=== PATIENT | male | born 1955 | race Caucasian/White ===

== ENCOUNTER → 2017-05-23 | Outpatient (CLI) | payer BC ==
[~2017-05-23] MED LIST: AMIO200T33 PO; CARV25TA PO; ENAL5TAB92 PO; ISOS20TA49 PO; NITR0.4S31 SL; [UNRECOGNIZED DRUG - CODE] PO; protonix PO
== END | disposition home or self-care (01) ==
LOC: Rad HDHVI 13:51
PROVIDERS: ATTEND Internal Medicine Cardiovascular Disease
DX: E78.5 Hyperlipidemia, unspecified (principal); R06.02 Shortness of breath
CPT/HCPCS: 93306

== ENCOUNTER → 2017-07-26 | Outpatient (CLI) | payer OTHER ==
[~2017-07-26] VITALS: Ht 195.6 cm; Wt 108.9 kg
[~2017-07-26] MED LIST changes: +ADENOSINE 90 MG/30 ML INJ IV ONE; +ADENOSINE 91 MG in GIVE UN-DILUTED 0 ML IV ONE
[2017-07-26 16:34] LABS: Urine Bilirubin Negative (Negative); Urine Blood Negative /uL (Negative); Urine Color Yellow (Yellow); Urine Glucose Normal (Normal); Urine Ketone Negative (Negative); Urine Nitrite Negative (Negative); Urine Urobilinogen Normal (Negative)
[2017-07-26 16:37] LABS: Hematocrit 46.9 % (41.0-53.0); Hemoglobin 16.1 g/dL (13.5-17.5); Mean Corpuscular Hemoglobin 32.5 pg (28.0-32.0); Mean Corpuscular Hgb Conc. 34.3 g/dL (32.0-36.0); Mean Corpuscular Volume 94.6 fL (80.0-100.0); Mean Platelet Volume 7.8 fL (6.9-10.8); Platelet Count (auto) 208 10^3/uL (140-450); Red Cell Distribution Width 15.1 % (11.8-14.3); White Blood Cell 7.2 10^3/uL (4.4-10.8)
[2017-07-26 16:40] LABS: BUN/Creatinine Ratio 13.2; Bilirubin, Direct 0.2 mg/dL (0-0.2); Bilirubin, Total 0.7 mg/dL (0.2-1.0); Calcium 9.1 mg/dL (8.5-10.1); Potassium 4.1 mmol/L (3.5-5.1); Total Protein 7.1 g/dL (6.4-8.2)
[2017-07-26 16:51] LABS: Metamyelocytes % 0; Myelocytes % 0; Promyelocytes % 0; Reactive Lymphocytes 0
[2017-07-26 19:03] LABS: Platelet Estimate Adequate; RBC Morphology Normal
== END | disposition home or self-care (01) ==
LOC: Rad HDHVI 10:21
PROVIDERS: ATTEND Internal Medicine Cardiovascular Disease
DX: I10 Essential (primary) hypertension (principal); E78.00 Pure hypercholesterolemia, unspecified; K74.1 Hepatic sclerosis; E11.9 Type 2 diabetes mellitus without complications; R97.20 Elevated prostate specific antigen [PSA]; R53.81 Other malaise; E03.9 Hypothyroidism, unspecified; D64.9 Anemia, unspecified; E55.9 Vitamin D deficiency, unspecified; N39.0 Urinary tract infection, site not specified
CPT/HCPCS: 36415; 78452; 80048; 80061; 80076; 81003; 82306; 83036; 84153; 84403; 84443; 85007; 85027; 93005; 96374; 96375; A9500; J0153

== ENCOUNTER → 2017-08-06 | Outpatient (CLI) | payer OTHER ==
[~2017-08-06] MED LIST changes: -ADENOSINE 90 MG/30 ML INJ IV ONE; -ADENOSINE 91 MG in GIVE UN-DILUTED 0 ML IV ONE
[2017-08-06 16:30] VITALS: BP 155/95
[2017-08-06 16:45] VITALS: BP 153/93
== END | disposition home or self-care (01) ==
LOC: CHF HDHVI 16:37
PROVIDERS: ATTEND Internal Medicine Cardiovascular Disease
DX: I50.9 Heart failure, unspecified (principal)
CPT/HCPCS: 96372; G0463

== ENCOUNTER → 2017-08-20 | Outpatient (CLI) | payer OTHER ==
[2017-08-20 14:55] VITALS: BP 126/77
[2017-08-20 15:45] VITALS: BP 130/77
[2017-08-20 17:01] LABS: Urine Blood Negative /uL (Negative); Urine Glucose Normal (Normal); Urine Ketone TRACE (Negative); Urine Mucus MANY (None Seen); Urine Nitrite Negative (Negative); Urine RBC 2 /hpf (0 - 3); Urine Squamous Epithelial Cell FEW /hpf (<5); Urine pH 5.5 (5.0-8.0)
[2017-08-20 17:04] LABS: Urine Bilirubin Negative (Negative); Urine Color AMBER (Yellow)
[2017-08-20 17:11] LABS: Hematocrit 49.6 % (41.0-53.0); Hemoglobin 17.2 g/dL (13.5-17.5); Mean Corpuscular Hemoglobin 32.4 pg (28.0-32.0); Mean Corpuscular Hgb Conc. 34.6 g/dL (32.0-36.0); Mean Corpuscular Volume 93.4 fL (80.0-100.0); Mean Platelet Volume 7.8 fL (6.9-10.8); Platelet Count (auto) 230 10^3/uL (140-450); Red Cell Distribution Width 14.3 % (11.8-14.3); White Blood Cell 10.2 10^3/uL (4.4-10.8)
[2017-08-20 17:13] LABS: BUN/Creatinine Ratio 17.8; Calcium 8.6 mg/dL (8.5-10.1); Potassium 3.6 mmol/L (3.5-5.1)
[2017-08-20 18:21] LABS: Promyelocytes % 0; Reactive Lymphocytes 0
[2017-08-20 18:36] LABS: Metamyelocytes % 2; Myelocytes % 1; Platelet Estimate Adequate
[2017-08-20 18:37] LABS: Tear Drop Cells FEW
[2017-08-20 19:10] LABS: Ovalocytes FEW; Toxic Granulation Slight
== END | disposition home or self-care (01) ==
LOC: CHF HDHVI 15:05
PROVIDERS: ATTEND Internal Medicine Cardiovascular Disease
DX: I10 Essential (primary) hypertension (principal); N39.0 Urinary tract infection, site not specified; D64.9 Anemia, unspecified
CPT/HCPCS: 36415; 80048; 81001; 85007; 85027; 87086; G0463

== ENCOUNTER → 2017-10-30 | Outpatient (CLI) | payer OTHER ==
[2017-10-30 12:17] LABS: Urine Bilirubin Negative (Negative); Urine Blood Negative /uL (Negative); Urine Color Yellow (Yellow); Urine Glucose Normal (Normal); Urine Ketone Negative (Negative); Urine Nitrite Negative (Negative); Urine Urobilinogen Normal (Negative)
== END | disposition home or self-care (01) ==
LOC: CHF HDHVI 08:04
PROVIDERS: ATTEND Internal Medicine Cardiovascular Disease
DX: N39.0 Urinary tract infection, site not specified (principal); R97.0 Elevated carcinoembryonic antigen [CEA]
CPT/HCPCS: 81003; 82378; 87086

== ENCOUNTER → 2018-01-08 | Outpatient (CLI) | payer OTHER ==
[2018-01-08 16:12] LABS: Albumin 3.9 g/dL (3.4-5.0); BUN/Creatinine Ratio 16.9; Calcium 8.7 mg/dL (8.5-10.1); Potassium 4.2 mmol/L (3.5-5.1)
[2018-01-08 16:15] LABS: Basophils # (auto) 0.1 uL; Basophils % (auto) 1.1 % (0.0-2.0); Bilirubin, Total 0.4 mg/dL (0.2-1.0); Eosinophils # (auto) 0.3 uL; Hemoglobin 15.6 g/dL (13.5-17.5); Lymphocytes # (auto) 1.8 uL; Lymphocytes % (auto) 27.6 % (10.0-50.0); Mean Corpuscular Hemoglobin 31.7 pg (28.0-32.0); Mean Corpuscular Hgb Conc. 34.8 g/dL (32.0-36.0); Mean Corpuscular Volume 91.1 fL (80.0-100.0); Monocytes # (auto) 0.6 uL; Monocytes % (auto) 9.3 % (0.0-12.0); Neutrophils # (auto) 3.7 uL; Nucleated Red Blood Cells % 0.2 %; Platelet Count (auto) 202 10^3/uL (140-450); Red Blood Cells 4.94 10^6/uL (4.5-5.90); Red Cell Distribution Width 14.1 % (11.8-14.3); Total Protein 6.8 g/dL (6.4-8.2); White Blood Cell 6.6 10^3/uL (4.4-10.8)
== END | disposition home or self-care (01) ==
LOC: LAB 14:32
PROVIDERS: ATTEND Internal Medicine Cardiovascular Disease
DX: D64.9 Anemia, unspecified (principal); R74.8 Abnormal levels of other serum enzymes; I50.9 Heart failure, unspecified; I10 Essential (primary) hypertension
CPT/HCPCS: 36415; 80053; 82550; 83880; 85025

== ENCOUNTER → 2018-07-04 | Outpatient (CLI) | payer OTHER ==
[2018-07-04 16:08] LABS: Urine Blood Negative /uL (Negative); Urine Specific Gravity 1.028 (1.001-1.035)
[2018-07-04 16:19] LABS: Basophils # (auto) 0.1 uL; Basophils % (auto) 0.9 % (0.0-2.0); Eosinophils # (auto) 0.2 uL; Eosinophils % (auto) 2.8 % (0.0-7.0); Hematocrit 45.1 % (41.0-53.0); Hemoglobin 15.8 g/dL (13.5-17.5); Lymphocytes # (auto) 1.6 uL; Lymphocytes % (auto) 25.1 % (10.0-50.0); Mean Corpuscular Hemoglobin 31.9 pg (28.0-32.0); Monocytes # (auto) 0.5 uL; Monocytes % (auto) 7.5 % (0.0-12.0); Neutrophils # (auto) 4.1 uL; Neutrophils % (auto) 63.7 % (37.0-80.0); Nucleated Red Blood Cells % 0.1 %; Platelet Count (auto) 196 10^3/uL (140-450); Red Blood Cells 4.96 10^6/uL (4.5-5.90); Red Cell Distribution Width 14.4 % (11.8-14.3); White Blood Cell 6.4 10^3/uL (4.4-10.8)
[2018-07-04 16:38] LABS: Alanine Aminotransferase 32 U/L (16-61); Albumin 4.1 g/dL (3.4-5.0); Alkaline Phosphatase 61 U/L (45-117); Anion Gap 7 (5-15); Aspartate Aminotransferase 26 U/L (15-37); BUN/Creatinine Ratio 16.7; Bilirubin, Direct < 0.1 mg/dL (0-0.2); Bilirubin, Total 0.6 mg/dL (0.2-1.0); Blood Urea Nitrogen 30 mg/dL (7-18); Calcium 8.9 mg/dL (8.5-10.1); Carbon Dioxide 26 mmol/L (21-32); Chloride 109 mmol/L (98-107); Cholesterol 257 mg/dL (< 200); GFR African American 49 mL/min; GFR Non-African American 41 mL/min; Glucose 85 mg/dL (74-106); HDL Cholesterol 36 mg/dL (40-59); LDL Cholesterol 178 mg/dL (< 100); Potassium 4.3 mmol/L (3.5-5.1); Sodium 142 mmol/L (136-145); Total Protein 7.4 g/dL (6.4-8.2); Triglycerides 271 mg/dL (< 150)
== END | disposition home or self-care (01) ==
LOC: LAB 15:12
PROVIDERS: ATTEND Internal Medicine
DX: Z00.01 Encounter for general adult medical examination with abnormal findings (principal); E29.1 Testicular hypofunction; C61 Malignant neoplasm of prostate; E11.9 Type 2 diabetes mellitus without complications; E03.9 Hypothyroidism, unspecified; E55.9 Vitamin D deficiency, unspecified; D51.9 Vitamin B12 deficiency anemia, unspecified; K74.1 Hepatic sclerosis; N39.0 Urinary tract infection, site not specified
CPT/HCPCS: 36415; 80048; 80061; 80076; 81003; 82306; 83036; 84153; 84403; 84443; 85025; 87086

== ENCOUNTER → 2018-12-25 | Outpatient (CLI) | payer OTHER ==
[~2018-12-25] MED LIST changes: +ENAL5TAB PO; -ENAL5TAB92 PO
== END | disposition home or self-care (01) ==
LOC: Rad HDHVI 12:23
PROVIDERS: ATTEND Internal Medicine Cardiovascular Disease
DX: I67.2 Cerebral atherosclerosis (principal); I67.82 Cerebral ischemia
CPT/HCPCS: 70450

== ENCOUNTER → 2019-06-30 | Outpatient (CLI) | payer OTHER ==
[2019-06-30 15:59] LABS: Urine Blood Negative /uL (Negative); Urine Specific Gravity 1.027 (1.001-1.035)
[2019-06-30 16:17] LABS: Albumin 3.8 g/dL (3.4-5.0); Calcium 9.1 mg/dL (8.5-10.1); Potassium 4.2 mmol/L (3.5-5.1)
[2019-06-30 16:23] LABS: BUN/Creatinine Ratio 19.1; Bilirubin, Total 0.4 mg/dL (0.2-1.0); Free T4 (Free Thyroxine) 1.05 ng/dL (0.89-1.76); Total Protein 7.1 g/dL (6.4-8.2)
[2019-06-30 16:24] LABS: Basophils # (auto) 0.1 uL; Basophils % (auto) 0.7 % (0.0-2.0); Eosinophils # (auto) 0.2 uL; Eosinophils % (auto) 2.2 % (0.0-7.0); Hematocrit 43.4 % (41.0-53.0); Hemoglobin 14.9 g/dL (13.5-17.5); Lymphocytes # (auto) 1.7 uL; Mean Corpuscular Hemoglobin 30.6 pg (28.0-32.0); Mean Corpuscular Hgb Conc. 34.4 g/dL (32.0-36.0); Mean Corpuscular Volume 88.9 fL (80.0-100.0); Monocytes # (auto) 0.6 uL; Monocytes % (auto) 8.2 % (0.0-12.0); Neutrophils # (auto) 5.2 uL; Neutrophils % (auto) 66.9 % (37.0-80.0); Nucleated Red Blood Cells % 0.2 %; Platelet Count (auto) 230 10^3/uL (140-450); Prostate Specific Antigen 1.25 ng/mL (0.0-4.0); Red Blood Cells 4.88 10^6/uL (4.5-5.90); Red Cell Distribution Width 14.3 % (11.8-14.3); White Blood Cell 7.8 10^3/uL (4.4-10.8)
== END | disposition home or self-care (01) ==
LOC: LAB 14:27
PROVIDERS: ATTEND Internal Medicine Cardiovascular Disease
DX: Z00.00 Encounter for general adult medical examination without abnormal findings (principal); E03.9 Hypothyroidism, unspecified; K90.9 Intestinal malabsorption, unspecified; C61 Malignant neoplasm of prostate; E29.1 Testicular hypofunction; N39.0 Urinary tract infection, site not specified; D51.9 Vitamin B12 deficiency anemia, unspecified; N18.3 Chronic kidney disease, stage 3 (moderate); Z79.899 Other long term (current) drug therapy
CPT/HCPCS: 36415; 80053; 80061; 81003; 82306; 82607; 83036; 84153; 84403; 84439; 84443; 85025

== ENCOUNTER → 2019-09-23 | Outpatient (CLI) | payer OTHER ==
[~2019-09-23] VITALS: Ht 195.6 cm; Wt 108.0 kg
[~2019-09-23] MED LIST changes: +ADENOSINE 90 MG/30 ML INJ IV ONE; +ADENOSINE 91 MG in GIVE UN-DILUTED 0 ML IV ONE
== END | disposition home or self-care (01) ==
LOC: Rad HDHVI 13:50
PROVIDERS: ATTEND Internal Medicine
DX: I08.1 Rheumatic disorders of both mitral and tricuspid valves (principal); E78.5 Hyperlipidemia, unspecified; I49.9 Cardiac arrhythmia, unspecified; I42.9 Cardiomyopathy, unspecified; N40.0 Benign prostatic hyperplasia without lower urinary tract symptoms; M54.9 Dorsalgia, unspecified; G89.29 Other chronic pain; I11.0 Hypertensive heart disease with heart failure; I50.9 Heart failure, unspecified
CPT/HCPCS: 78452; 93005; 93306; 96374; 96375; A9500; J0153

== ENCOUNTER → 2019-09-29 | Outpatient (CLI) | payer OTHER ==
[~2019-09-29] MED LIST changes: -ADENOSINE 90 MG/30 ML INJ IV ONE; -ADENOSINE 91 MG in GIVE UN-DILUTED 0 ML IV ONE
== END | disposition home or self-care (01) ==
LOC: Rad HDHVI 09:32
PROVIDERS: ATTEND Internal Medicine
DX: M48.061 Spinal stenosis, lumbar region without neurogenic claudication (principal)
CPT/HCPCS: 72131

== ENCOUNTER → 2020-04-23 | Outpatient (CLI) | payer OTHER ==
[~2020-04-23] VITALS: Ht 195.6 cm; Wt 108.9 kg
[~2020-04-23] MED LIST changes: +CHOL10009 PO; +CHON150C PO; +HYDR12.55 PO; +ISOS30TA4 PO; +NIFE1TAB36 PO; +ZOLP10TA PO
[2020-04-23 09:15] VITALS: BP 133/83
--- NOTE | 2020-04-23 09:15 | NUR ---
CHF PT ARRIVED TO THE CHF CLINIC FOR PRE OP EKG, LABS, AND CXR FOR LHC ON 04/28/20. A/O X4, AMBULATORY.
[2020-04-23 10:03] VITALS: BP 146/83
--- NOTE | 2020-04-23 10:08 | NUR ---
Pre-Op Discharge Summary: See e-MAR for any medications given for this visit. Pre-op orders received and carried out per MD of EKG, LABS and chest xrays. Patient given a copy of EKG with instructions to go to [facility] out patient for further follow up care. NOTE EKG ADMIN BY HALLIE PLUMMER
[2020-04-23 12:28] LABS: INR 1.03 (0.9-1.15); Partial Thromboplastin Time 25.8 sec (23.64-32.05)
[2020-04-23 12:29] LABS: Basophils # (auto) 0.1 10 ^3/uL (0-0.2); Basophils % (auto) 1.2 % (0.0-2.0); Eosinophils # (auto) 0.3 10 ^3/uL (0-0.8); Eosinophils % (auto) 5.8 % (0.0-7.0); Hematocrit 44.8 % (41.0-53.0); Hemoglobin 15.1 g/dL (13.5-17.5); Lymphocytes # (auto) 1.1 10 ^3/uL (0.4-5.4); Lymphocytes % (auto) 19.9 % (10.0-50.0); Mean Corpuscular Hemoglobin 30.3 pg (28.0-32.0); Mean Corpuscular Hgb Conc. 33.7 g/dL (32.0-36.0); Monocytes # (auto) 0.5 10 ^3/uL (0-1.3); Neutrophils # (auto) 3.4 10 ^3/uL (1.6-8.6); Neutrophils % (auto) 63.1 % (37.0-80.0); Nucleated Red Blood Cells % 0.1 %; Platelet Count (auto) 191 10^3/uL (140-450); Potassium 4.2 mmol/L (3.5-5.1); Red Blood Cells 4.98 10^6/uL (4.5-5.90); Red Cell Distribution Width 14.2 % (11.8-14.3); White Blood Cell 5.4 10^3/uL (4.4-10.8)
[2020-04-23 12:47] LABS: Calcium 8.6 mg/dL (8.5-10.1)
== END | disposition home or self-care (01) ==
LOC: Rad HDHVI 09:00
PROVIDERS: ATTEND Internal Medicine
DX: Z01.812 Encounter for preprocedural laboratory examination (principal); I70.0 Atherosclerosis of aorta; I10 Essential (primary) hypertension; D64.9 Anemia, unspecified; R79.1 Abnormal coagulation profile
CPT/HCPCS: 36415; 71046; 80048; 85025; 85610; 85730; 93005; G0463

== ENCOUNTER 2020-04-28 06:52 | Day surgery (SDC) | payer OTHER, MEDICARE ==
[~2020-04-28 06:52] MED LIST changes: -CARV25TA PO; -ISOS20TA49 PO; -protonix PO
[2020-04-28] MEDS ORDERED: IODIXANOL 320MG/ML 100ML BTL IV ONE (07:00)
[2020-04-28] MEDS ORDERED: LIDOCAINE 2%HCL (LOCAL ANESTH.) INJ 20ML MDV ONE (07:53)
[2020-04-28] MEDS ORDERED: HEPARIN SODIUM (PORCINE) 5000 UNITS/ML 1ML VIAL ONE (09:00)
[2020-04-28] MEDS ORDERED: VERAPAMIL 2.5MG/ML INJ 2ML VIAL IV ONE (09:00)
[2020-04-28] MEDS ORDERED: ANGIOMAX 250 MG VIAL IV ONE (09:00)
[2020-04-28] MEDS ORDERED: MIDAZOLAM HCL 1MG/1ML-2 ML VIAL ONE ×2 (09:01→09:35)
[2020-04-28] MEDS ORDERED: fentaNYL CITRATE 100 MCG/2 ML VL ONE ×2 (09:01→09:35)
[2020-04-28] MEDS ORDERED: SODIUM CHL 0.9% 0 ML ONE (09:01)
[2020-04-28] MEDS ORDERED: diphenhdrAMINE HCL 50 MG/1 ML VL ONE (09:38)
[2020-04-28] MEDS ORDERED: HYDROcodone-ACET 5/325MG TAB PO PRN (10:10)
[2020-04-28] MEDS ORDERED: ACETAMINOPHEN 500 MG TAB PO PRN (10:10)
[2020-04-28] MEDS ORDERED: ONDANSETRON HCL 4 MG/2 ML VIAL IV PRN (10:10)
[2020-04-28] MEDS ORDERED: SODIUM CHLORIDE 0.9% 1,000 ML IV SCH (10:10)
== END 2020-04-28 13:43 | disposition home or self-care (01) ==
LOC: CATH 06:52
PROVIDERS: ATTEND Internal Medicine
DX: I25.10 Atherosclerotic heart disease of native coronary artery without angina pectoris (principal); I25.2 Old myocardial infarction; I10 Essential (primary) hypertension; E78.5 Hyperlipidemia, unspecified; Z95.5 Presence of coronary angioplasty implant and graft; Z87.891 Personal history of nicotine dependence; Z98.890 Other specified postprocedural states; Z11.59 Encounter for screening for other viral diseases
CPT/HCPCS: 93458; 93571; C1769; C1887; C1894; J1200; J1644; J2250; J3010; J7030; Q9967; U0003; 99152; 99153

== ENCOUNTER → 2020-10-12 | Outpatient (CLI) | payer MEDICARE, BC ==
[~2020-10-12] MED LIST changes: -ENAL5TAB PO; +ENAL5TAB10 PO; +METO1TAB9 PO
[2020-10-12 14:58] VITALS: BP 148/92
--- NOTE | 2020-10-12 14:58 | NUR ---
CLINIC PT ARRIVED TO THE CHF CLINIC FOR PRE OP EKG, LABS, AND CXR FOR PACEMAKER GENT CHANGE, A/X4, AMBULATORY WITH CANE, BREATHING IS EVEN AND UNLABORED.
--- NOTE | 2020-10-12 15:09 | NUR ---
EKG DONE BY DONALD PLUMMER REVIEWED BY DIONNA STEVENSON AV PACED [phone]
[2020-10-12 15:19] VITALS: BP 154/94
--- NOTE | 2020-10-12 15:19 | NUR ---
Pre-Op Discharge Summary: See e-MAR for any medications given for this visit. Pre-op orders received and carried out per MD of EKG, LABS and chest xrays. Patient given a copy of EKG with instructions to go to [facility] out patient for further follow up care. NOTE EKG DONE BY DONALD PLUMMER REVIEWED BY DIONNA STEVENSON
[2020-10-12 15:58] LABS: Basophils # (auto) 0.1 10 ^3/uL (0-0.2); Basophils % (auto) 0.7 % (0.0-2.0); Eosinophils # (auto) 0.2 10 ^3/uL (0-0.8); Eosinophils % (auto) 2.6 % (0.0-7.0); Hematocrit 46.2 % (41.0-53.0); Hemoglobin 15.9 g/dL (13.5-17.5); Lymphocytes % (auto) 23.2 % (10.0-50.0); Mean Corpuscular Hemoglobin 30.5 pg (28.0-32.0); Mean Corpuscular Hgb Conc. 34.4 g/dL (32.0-36.0); Mean Corpuscular Volume 88.6 fL (80.0-100.0); Monocytes # (auto) 0.6 10 ^3/uL (0-1.3); Monocytes % (auto) 7.7 % (0.0-12.0); Neutrophils # (auto) 5.6 10 ^3/uL (1.6-8.6); Neutrophils % (auto) 65.8 % (37.0-80.0); Nucleated Red Blood Cells % 0.2 %; Platelet Count (auto) 220 10^3/uL (140-450); Red Blood Cells 5.22 10^6/uL (4.5-5.90); Red Cell Distribution Width 14.3 % (11.8-14.3); White Blood Cell 8.4 10^3/uL (4.4-10.8)
[2020-10-12 16:09] LABS: BUN/Creatinine Ratio 22.2; Potassium 4.1 mmol/L (3.5-5.1)
[2020-10-12 16:59] LABS: Partial Thromboplastin Time 23.3 sec (23.0-31.2)
== END | disposition home or self-care (01) ==
LOC: Rad HDHVI 14:49
PROVIDERS: ATTEND Internal Medicine
DX: Z01.812 Encounter for preprocedural laboratory examination (principal); Z45.02 Encounter for adjustment and management of automatic implantable cardiac defibrillator; I11.0 Hypertensive heart disease with heart failure; I50.9 Heart failure, unspecified
CPT/HCPCS: 36415; 71046; 80048; 85025; 85610; 85730; 93005; G0463

== ENCOUNTER 2020-10-14 06:51 | Day surgery (SDC) | payer MEDICARE, OTHER ==
[~2020-10-14] VITALS: Ht 195.6 cm; Wt 111.1 kg
[~2020-10-14 06:51] MED LIST changes: -CHON150C PO; -ENAL5TAB10 PO; -HYDR12.55 PO; -ISOS30TA4 PO; -[UNRECOGNIZED DRUG - CODE] PO
[2020-10-14] MEDS ORDERED: LIDOCAINE 2%HCL (LOCAL ANESTH.) INJ 20ML MDV ONE (07:49)
[2020-10-14] MEDS ORDERED: diphenhdrAMINE HCL 50 MG/1 ML VL ONE (09:30)
[2020-10-14] MEDS ORDERED: VANCOMYCIN HCL 1000 MG VL ONE ×2 (09:30→10:48)
[2020-10-14] MEDS ORDERED: fentaNYL CITRATE 100 MCG/2 ML VL ONE (09:30)
[2020-10-14] MEDS ORDERED: VANCOMYCIN 1GM/250ML 250 ML IV ONE (09:31)
[2020-10-14] MEDS ORDERED: MIDAZOLAM HCL 2MG/2ML 2ml VIAL (1mg/ml) ONE ×2 (09:31→10:12)
[2020-10-14] MEDS ORDERED: ACETAMINOPHEN 325 MG TAB PO PRN (11:30)
[2020-10-14] MEDS ORDERED: HYDROcodone-ACET 5/325MG TAB PO PRN (11:30)
== END 2020-10-14 13:27 | disposition home or self-care (01) ==
LOC: CATH 06:51
PROVIDERS: ATTEND Internal Medicine
DX: Z45.02 Encounter for adjustment and management of automatic implantable cardiac defibrillator (principal); I50.9 Heart failure, unspecified; G47.30 Sleep apnea, unspecified; I25.2 Old myocardial infarction; K21.9 Gastro-esophageal reflux disease without esophagitis; M19.90 Unspecified osteoarthritis, unspecified site; Z87.891 Personal history of nicotine dependence; Z95.5 Presence of coronary angioplasty implant and graft; Z98.890 Other specified postprocedural states; Z88.8 Allergy status to other drugs, medicaments and biological substances; Z20.828 Contact with and (suspected) exposure to other viral communicable diseases
CPT/HCPCS: 33264; C1882; J1200; J2250; J3010; J3370; J7030; U0003; 99152; 99153

== ENCOUNTER → 2022-01-20 | Outpatient (CLI) | payer MEDICARE, OTHER ==
[2022-01-20 11:53] LABS: Urine Blood Negative /uL (Negative); Urine Specific Gravity 1.029 (1.001-1.035)
[2022-01-20 11:59] LABS: Basophils # (auto) 0.1 10 ^3/uL (0-0.2); Basophils % (auto) 1.2 % (0.0-2.0); Eosinophils # (auto) 0.3 10 ^3/uL (0-0.8); Eosinophils % (auto) 4.5 % (0.0-7.0); Lymphocytes # (auto) 1.1 10 ^3/uL (0.4-5.4); Mean Corpuscular Hemoglobin 31.2 pg (28.0-32.0); Mean Corpuscular Hgb Conc. 34.9 g/dL (32.0-36.0); Mean Corpuscular Volume 89.4 fL (80.0-100.0); Monocytes # (auto) 0.5 10 ^3/uL (0-1.3); Monocytes % (auto) 8.6 % (0.0-12.0); Neutrophils # (auto) 4.1 10 ^3/uL (1.6-8.6); Neutrophils % (auto) 67.7 % (37.0-80.0); Nucleated Red Blood Cells % 0.4 %; Red Blood Cells 5.14 10^6/uL (4.5-5.90); Red Cell Distribution Width 14.3 % (11.8-14.3); White Blood Cell 6.1 10^3/uL (4.4-10.8)
[2022-01-20 12:03] LABS: Calcium 9.4 mg/dL (8.5-10.1); Potassium 3.9 mmol/L (3.5-5.1)
[2022-01-20 12:12] LABS: Albumin 3.8 g/dL (3.4-5.0); BUN/Creatinine Ratio 15.1; Bilirubin, Total 0.5 mg/dL (0.2-1.0); Total Protein 6.8 g/dL (6.4-8.2)
[2022-01-20 12:13] LABS: Free T4 (Free Thyroxine) 1.16 ng/dL (0.89-1.76); Prostate Specific Antigen 1.43 ng/mL (0.0-4.0)
== END | disposition home or self-care (01) ==
LOC: LAB 09:56
PROVIDERS: ATTEND Internal Medicine
DX: I10 Essential (primary) hypertension (principal); C61 Malignant neoplasm of prostate; D51.3 Other dietary vitamin B12 deficiency anemia; E11.9 Type 2 diabetes mellitus without complications; E55.9 Vitamin D deficiency, unspecified; R00.2 Palpitations; R53.1 Weakness; R30.0 Dysuria; D64.9 Anemia, unspecified
CPT/HCPCS: 36415; 80053; 80061; 81003; 82306; 82607; 83036; 84153; 84403; 84439; 84443; 85025

== ENCOUNTER → 2022-04-12 | Outpatient (CLI) | payer MEDICARE, OTHER ==
[2022-04-12 11:42] LABS: Potassium 3.6 mmol/L (3.5-5.1)
[2022-04-12 11:49] LABS: Albumin 3.8 g/dL (3.4-5.0); BUN/Creatinine Ratio 16.8; Bilirubin, Total 0.5 mg/dL (0.2-1.0); Calcium 9.4 mg/dL (8.5-10.1); Total Protein 7.1 g/dL (6.4-8.2)
== END | disposition home or self-care (01) ==
LOC: LAB 10:18
PROVIDERS: ATTEND Internal Medicine
DX: I10 Essential (primary) hypertension (principal)
CPT/HCPCS: 36415; 80053

== ENCOUNTER → 2022-09-06 | Outpatient (CLI) | payer MEDICARE, OTHER ==
[2022-09-06 12:24] LABS: Potassium 3.8 mmol/L (3.5-5.1)
[2022-09-06 12:33] LABS: Albumin 3.7 g/dL (3.4-5.0); BUN/Creatinine Ratio 14.3; Bilirubin, Total 0.5 mg/dL (0.2-1.0); Total Protein 6.8 g/dL (6.4-8.2)
== END | disposition home or self-care (01) ==
LOC: LAB 09:24
PROVIDERS: ATTEND Internal Medicine
DX: I10 Essential (primary) hypertension (principal)
CPT/HCPCS: 36415; 80053

== ENCOUNTER → 2023-03-26 | Outpatient (CLI) | payer MEDICARE, OTHER ==
[~2023-03-26] VITALS: Ht 195.6 cm; Wt 113.4 kg
[~2023-03-26] MED LIST changes: +ADENOSINE 90 MG/30 ML INJ IV ONE; +ADENOSINE 95 MG in GIVE UN-DILUTED 0 ML IV ONE
== END | disposition home or self-care (01) ==
LOC: Rad HDHVI 13:55
PROVIDERS: ATTEND Internal Medicine Cardiovascular Disease
DX: I11.0 Hypertensive heart disease with heart failure (principal); I50.42 Chronic combined systolic (congestive) and diastolic (congestive) heart failure; R07.9 Chest pain, unspecified; E78.5 Hyperlipidemia, unspecified; E11.65 Type 2 diabetes mellitus with hyperglycemia; I25.2 Old myocardial infarction; E11.9 Type 2 diabetes mellitus without complications; Z79.82 Long term (current) use of aspirin; Z79.899 Other long term (current) drug therapy
CPT/HCPCS: 78452; 93005; 96374; 96375; A9500; J0153

== ENCOUNTER → 2023-04-18 | Outpatient (CLI) | payer MEDICARE, OTHER ==
[~2023-04-18] MED LIST changes: -ADENOSINE 90 MG/30 ML INJ IV ONE; -ADENOSINE 95 MG in GIVE UN-DILUTED 0 ML IV ONE
== END | disposition home or self-care (01) ==
LOC: Rad HDHVI 09:59
PROVIDERS: ATTEND Internal Medicine Cardiovascular Disease
DX: I08.1 Rheumatic disorders of both mitral and tricuspid valves (principal); I11.9 Hypertensive heart disease without heart failure; Z95.0 Presence of cardiac pacemaker; R07.89 Other chest pain
CPT/HCPCS: 93306

== ENCOUNTER → 2023-12-13 | Outpatient (CLI) | payer MEDICARE, OTHER ==
[~2023-12-13] VITALS: Ht 195.6 cm; Wt 120.2 kg
== END | disposition home or self-care (01) ==
LOC: Rad HDHVI 09:02
PROVIDERS: ATTEND Internal Medicine Cardiovascular Disease
DX: I11.0 Hypertensive heart disease with heart failure (principal); I50.42 Chronic combined systolic (congestive) and diastolic (congestive) heart failure; E78.5 Hyperlipidemia, unspecified; I25.2 Old myocardial infarction; E11.9 Type 2 diabetes mellitus without complications; Z95.0 Presence of cardiac pacemaker; Z79.899 Other long term (current) drug therapy; Z79.82 Long term (current) use of aspirin
CPT/HCPCS: 78472; 96374; 96375; A9505

== ENCOUNTER → 2023-12-26 | Outpatient (CLI) | payer MEDICARE, OTHER | END | disposition home or self-care (01) | LOC: Rad HDHVI 09:54 | PROVIDERS: ATTEND Internal Medicine Cardiovascular Disease | DX: I08.1 Rheumatic disorders of both mitral and tricuspid valves (principal); I10 Essential (primary) hypertension; R07.89 Other chest pain | CPT/HCPCS: 93306 ==

== ENCOUNTER → 2025-03-16 | Outpatient (CLI) | payer MEDICARE, OTHER | END | disposition home or self-care (01) | LOC: Rad HDHVI 10:56 | PROVIDERS: ATTEND Internal Medicine Cardiovascular Disease | DX: I34.0 Nonrheumatic mitral (valve) insufficiency (principal); I11.0 Hypertensive heart disease with heart failure; I50.23 Acute on chronic systolic (congestive) heart failure | CPT/HCPCS: 93306 ==

== ENCOUNTER 2025-04-20 08:50 | Outpatient (CLI) | payer MEDICARE, OTHER ==
[2025-04-20 09:01] VITALS: BP 152/80; PULSE 60; RESP 16; O2SAT 95
[2025-04-20 09:15] VITALS: BP 143/80; PULSE 60; RESP 16; O2SAT 95
--- NOTE | 2025-04-20 13:23 | DVH ---
XY CHEST TWO VIEWS ROUTINE CLINICAL HISTORY: PRE OP CARDIAC CLEARANCE COMPARISON: CHEST TWO VIEWS ROUTINE on DOS: 04/13/21, CHEST TWO VIEWS ROUTINE on DOS: 10/12/20, CHEST TW O VIEWS ROUTINE on DOS: 04/23/20 TECHNIQUE: Frontal and lateral view of the chest was obtained FINDINGS: Lines and Tubes: Left pacemaker/ AICD. Lungs: No focal consolidation. Pleura: No effusion. No pneumothorax. Cardiomediastinal contours: Unremarkable Bones: No acute osseous abnormality. IMPRESSION: No acute cardiopulmonary disease.
[2025-04-20] MEDS ORDERED: SEMA2INJ3 SC (16:44)
[2025-04-20] MEDS ORDERED: SACU1TAB4 PO (16:44)
[2025-04-20] MEDS ORDERED: CLOTCRE3 TOP (16:44)
[2025-04-20] MEDS ORDERED: ALBU108A5 IN (16:44)
[2025-04-20] MEDS ORDERED: DOCU100T7 PO (16:44)
[2025-04-20] MEDS ORDERED: MELA10TA PO (16:44)
[2025-04-20] MEDS ORDERED: AMIO400T7 PO (16:44)
[2025-04-20] MEDS ORDERED: AMLO1TAB23 PO (16:44)
[2025-04-20] MEDS ORDERED: CITA-77 PO (16:44)
[2025-04-20] MEDS ORDERED: ONDA-155 PO (16:44)
[2025-04-20] MEDS ORDERED: ASPI1TAB19 PO (16:44)
[2025-04-20] MEDS ORDERED: INCL284S SC (16:44)
[2025-04-20] MEDS ORDERED: MAGN400T40 PO (16:44)
[2025-04-20] MEDS ORDERED: MULT-1018 PO (16:44)
[2025-04-20] MEDS ORDERED: TERA1CAP52 PO (16:44)
[2025-04-20] MEDS ORDERED: ACET-1881 PO (16:44)
[2025-04-20] MEDS ORDERED: HYDR12.59 PO (16:44)
== END 2025-04-20 17:00 | disposition home or self-care (01) ==
LOC: Rad HDHVI 08:50
PROVIDERS: ATTEND Internal Medicine Cardiovascular Disease
DX: Z01.818 Encounter for other preprocedural examination (principal)
CPT/HCPCS: 71046; 93005; G0463

== ENCOUNTER 2025-04-23 07:50 | Day surgery (SDC) | payer MEDICARE, OTHER ==
[2025-04-20 12:00] LABS: Eosinophils # (auto) 0.1 10 ^3/uL (0-0.8); Hemoglobin 17.8 g/dL (13.5-17.5); Monocytes # (auto) 0.5 10 ^3/uL (0-1.3); Neutrophils # (auto) 4.4 10 ^3/uL (1.6-8.6)
[2025-04-20 12:02] LABS: Basophils # (auto) 0 10 ^3/uL (0-0.2); Basophils % (auto) 0.7 % (0.0-2.0); Eosinophils % (auto) 1.9 % (0.0-7.0); Hematocrit 49.9 % (41.0-53.0); Lymphocytes % (auto) 16.9 % (10.0-50.0); Mean Corpuscular Hemoglobin 32.2 pg (28.0-32.0); Mean Corpuscular Hgb Conc. 35.6 g/dL (32.0-36.0); Mean Corpuscular Volume 90.5 fL (80.0-100.0); Monocytes % (auto) 8.3 % (0.0-12.0); Neutrophils % (auto) 72.2 % (37.0-80.0); Platelet Count (auto) 228 10^3/uL (140-450); Red Blood Cells 5.52 10^6/uL (4.5-5.90); Red Cell Distribution Width 14.1 % (11.8-14.3)
[2025-04-20 12:05] LABS: INR 1.12 (0.9-1.15); Partial Thromboplastin Time 26.2 SEC (24.5-34.5); Prothrombin Time 11.7 sec (9.3-11.8)
[2025-04-20 12:09] LABS: Chloride 105 mmol/L (98-107); Potassium 4.2 mmol/L (3.5-5.1); Sodium 141 mmol/L (136-145)
[2025-04-20 12:10] LABS: Anion Gap 9 (5-15); Carbon Dioxide 27 mmol/L (20-31)
[2025-04-20 12:11] LABS: Calcium 10.2 mg/dL (8.7-10.4)
[2025-04-20 12:16] LABS: Blood Urea Nitrogen 19 mg/dL (9-23); Glucose 102 mg/dL (74-106)
[~2025-04-23] VITALS: Ht 195.6 cm; Wt 112.0 kg
[2025-04-23] VITALS (8 sets, daily range): BP systolic 116–138; BP diastolic 69–83; PULSE 60–62; RESP 12–15; O2SAT 90–94
[~2025-04-23 07:50] MED LIST changes: +ACET-1881 PO; +ALBU108A5 IN; -AMIO200T33 PO; +AMIO400T7 PO; +AMLO1TAB23 PO; +ASPI1TAB19 PO; +CITA-77 PO; +CLOTCRE3 TOP; +DOCU100T7 PO; +HYDR12.59 PO; +INCL284S SC; +IOHEXOL 350 MG/ML 100ML IJ ONE; +MAGN400T40 PO; +MELA10TA PO; -METO1TAB9 PO; +MULT-1018 PO; -NIFE1TAB36 PO; +ONDA-155 PO; +SACU1TAB4 PO; +SEMA2INJ3 SC; +TERA1CAP52 PO
[2025-04-23] MEDS ORDERED: ANGIOMAX 250 MG VIAL IV ONE (08:04)
[2025-04-23] MEDS ORDERED: SODIUM CHL 0.9% 0 ML ONE (08:05)
[2025-04-23] MEDS ORDERED: MIDAZOLAM HCL 2MG/2ML 2ml VIAL (1mg/ml) ONE (08:05)
[2025-04-23] MEDS ORDERED: LIDOCAINE 2%HCL (LOCAL ANESTH.) INJ 20ML MDV ONE (08:05)
[2025-04-23] MEDS ORDERED: fentaNYL CITRATE 100 MCG/2 ML VL ONE (08:05)
[2025-04-23] MEDS ORDERED: IODIXANOL 320MG/ML 100ML BTL IV ONE (08:41)
--- NOTE | 2025-04-23 09:24 | DVHHP ---
ADMIT DATE: 04/23/2025 HISTORY OF PRESENT ILLNESS: The patient is a 69-year-old with a history of dilated cardiomyopathy, heart failure with reduced ejection fraction. He is status post AICD implantation. The patient now has progressive symptoms of shortness of breath and stress test shows inferior wall reversibility. Because of the presentation, it was felt that the patient should undergo coronary angiography to define coronary anatomy. Risks and benefits were explained to the patient. The patient understands and agrees. PERTINENT MEDICAL HISTORY: Significant for: * Metabolic syndrome. * Morbid obesity. * Congestive heart failure. * History of sleep apnea. * Hypertension. * Hyperlipidemia. FAMILY HISTORY: Negative. SOCIAL HISTORY: Negative. REVIEW OF SYSTEMS: He denies any fevers, chills, melena, hematochezia, hematemesis, or hemoptysis. He denies any history of bleeding diathesis. No history of any irritable bowel syndrome, inflammatory bowel disease, or any history of any GI symptomatology. No liver disease. No history of alcohol or tobacco use. No history of drug use. No fever, no chills at this time. No history of lung disease at this time as well. No previous history of myocardial infarction. PHYSICAL EXAMINATION: VITAL SIGNS: Blood pressure is 124/80, pulse 70 and paced. HEENT: Pupils are reactive. Funduscopic exam shows no AV nicking. No exudates. No papilledema. Sclerae anicteric. Extraocular muscles are intact. NECK: No JVD appreciated. Carotid pulses are 2+ and symmetrical. Normal upstroke and contour. No cervical adenopathy. No supraclavicular adenopathy. PULMONARY: Clear to auscultation. Tympanic to percussion. CARDIOVASCULAR: Regular rate without S3, without S4. PMI is slightly diffused. ABDOMEN: Obese, unable to appreciate organomegaly. SKIN: Unremarkable. EXTREMITIES: 2+ pulses bilaterally. NEUROLOGIC: The patient is intact. ASSESSMENT AND PLAN: The patient with cardiomyopathy, now to undergo coronary angiography to define coronary anatomy. Further recommendations after the angiogram. Darryl Francis MD SA/LAKISHA TID: [id number] RECEIPT: [id number]
--- NOTE | 2025-04-23 09:30 | DVHOP ---
DATE OF SURGERY: 04/23/2025 PROCEDURES PERFORMED: * Selective left and right coronary angiography. * FFR of the distal RCA. * Ventriculogram. * Right iliac angiography. DESCRIPTION OF PROCEDURE: The patient was prepped and draped in sterile condition. A 1% Xylocaine was used to anesthetize the right groin. The right femoral artery was engaged using the Seldinger technique. A 6-Kazakh sheath was inserted into the right femoral artery. Using a 6-Kazakh JL4 catheter and 6-Kazakh JR4 catheter, selective left and right coronary angiography was performed. Using a 6-Kazakh pigtail catheter, ventriculogram was done. There were no complications. The patient tolerated the procedure well. Right iliac angiography was done and right side closed using the 6-Kazakh AngioSeal. RESULTS: * Left main patent. * Left anterior descending artery, mild intermittent irregularity without any flow restrictive lesion. * Circumflex nondominant vessel without any flow restrictive lesion. * Right coronary artery large dominant vessel, has moderate diffuse disease throughout. In the distal RCA, there is about a 60%-70% narrowing right before the bifurcation of the PDA and the posterior marginal branch. FFR was 0.79. CONCLUSION: Therefore, it is a significant lesion. We will revisit it. I would like to check the stress test results once again to see whether it is the same territory of involvement. If it is the case, then the patient will require revascularization of the distal RCA. We will make further recommendations after. Darryl Francis MD SA/KAILA TID: [id number] RECEIPT: [id number]
--- NOTE | 2025-04-23 09:33 | DVHDS ---
DATE OF DISCHARGE: 04/23/2025 DISCHARGE DIAGNOSES: The patient with dilated cardiomyopathy, now with possible ischemic component involving the right coronary artery. There is about a 60% to 70% narrowing, FFR of 0.78. HOSPITAL COURSE: At this time, I will revisit the patient's coronary angiogram at a later date. I will also reexamine the patient's stress test to see whether there is any significant inferior ischemia. If there is, the patient will require revascularization of the RCA. In angiography, however, the patient's lesion was less than 50%. We will continue to follow. The patient is stable at the time of discharge. DISPOSITION: Home. ACTIVITY: As instructed. DIET: 2 gram sodium diet. Darryl Farncis MD SA/TEMO TID: [id number] RECEIPT: [id number]
== END 2025-04-23 11:12 | disposition home or self-care (01) ==
LOC: CATH 07:50
PROVIDERS: ATTEND Internal Medicine Cardiovascular Disease
DX: I42.0 Dilated cardiomyopathy (principal); I25.10 Atherosclerotic heart disease of native coronary artery without angina pectoris; I11.0 Hypertensive heart disease with heart failure; I50.22 Chronic systolic (congestive) heart failure; G47.30 Sleep apnea, unspecified; E78.5 Hyperlipidemia, unspecified; E88.810 Metabolic syndrome; E66.01 Morbid (severe) obesity due to excess calories; Z68.29 Body mass index [BMI] 29.0-29.9, adult; Z95.810 Presence of automatic (implantable) cardiac defibrillator; Z88.8 Allergy status to other drugs, medicaments and biological substances
CPT/HCPCS: 0523T; 36415; 80048; 85025; 85610; 85730; 93454; C1760; C1894; J1644; J2250; J3010; J7030; Q9967; 99152

== ENCOUNTER 2025-05-26 08:14 | Outpatient (CLI) | payer MEDICARE, OTHER ==
[~2025-05-26] VITALS: Ht 195.6 cm; Wt 108.0 kg
[~2025-05-26 08:14] MED LIST changes: -IOHEXOL 350 MG/ML 100ML IJ ONE
[2025-05-26] MEDS ORDERED: ADENOSINE 90 MG/30 ML INJ IV ONE (08:45)
[2025-05-26] MEDS ORDERED: ADENOSINE 91 MG in GIVE UN-DILUTED 0 ML IV ONE (09:30)
== END 2025-05-26 17:00 | disposition home or self-care (01) ==
LOC: Rad HDHVI 08:14
PROVIDERS: ATTEND Internal Medicine Cardiovascular Disease
DX: I49.3 Ventricular premature depolarization (principal); I25.10 Atherosclerotic heart disease of native coronary artery without angina pectoris; I11.0 Hypertensive heart disease with heart failure; I50.23 Acute on chronic systolic (congestive) heart failure; E11.9 Type 2 diabetes mellitus without complications; R07.89 Other chest pain; I25.5 Ischemic cardiomyopathy; I47.20 Ventricular tachycardia, unspecified; I42.0 Dilated cardiomyopathy; E78.00 Pure hypercholesterolemia, unspecified; I25.2 Old myocardial infarction; Z95.810 Presence of automatic (implantable) cardiac defibrillator
CPT/HCPCS: 78452; 93017; A9500; J0153